=== PATIENT | female | born 1960 | race Caucasian/White ===

== ENCOUNTER → 2019-06-16 12:09 | Outpatient (CLI) | payer BC, SELFPAY | PROVIDERS: Visit Provider Nurse Practitioner Family | DX: J45.21 Mild intermittent asthma with (acute) exacerbation (principal); J98.01 Acute bronchospasm | CPT/HCPCS: 87070; 87205 ==

== ENCOUNTER → 2019-08-21 14:03 | Outpatient (POV) | payer BC, SELFPAY | PROVIDERS: Visit Provider Dermatology | DX: Z00.00 Encounter for general adult medical examination without abnormal findings (principal) ==

== ENCOUNTER → 2020-05-13 12:21 | Outpatient (CLI) | payer BC, SELFPAY ==
--- NOTE | 2020-05-13 12:32 | XR_ITS ---
PROCEDURE: XR KUB CLINICAL INDICATION: FLANK PAIN,H/O RENAL CALCULI COMPARISON: No exams were available for comparison FINDINGS: No obvious renal calculi. There are multiple pelvic calcifications on both sides anyone which could represent a ureteral calculus. Consider CT for more thorough evaluation. Sclerotic areas present in the left acetabular roof region and may be due to a bone island. IMPRESSION: Multiple nonspecific pelvic calcifications. These are more than likely consistent with phleboliths however a ureteral calculus could also be present. Consider CT for further evaluation. Dictated by: Avelino Sigala MD 05/13/2020 18:31 Avelino Sigala MD in [place] 05/13/2020 18:31
== END ==
PROVIDERS: PCP Nurse Practitioner Family; Visit Provider Nurse Practitioner Family
DX: R10.9 Unspecified abdominal pain (principal); Z87.442 Personal history of urinary calculi
CPT/HCPCS: 74018

== ENCOUNTER → 2020-05-16 06:51 | Outpatient (CLI) | payer BC, SELFPAY ==
--- NOTE | 2020-05-16 06:58 | CT_ITS ---
PROCEDURE: CT ABDOMEN PELVIS WO CON CLINICAL INDICATION: FLANK PAIN..HX OF KIDNEY STONES bilat flank pain x 2 weeks COMPARISON: No exams were available for comparison TECHNIQUE: Axial images obtained with sagittal and coronal reformats. All CT scans at the facility use one or more dose reduction, viz: automated exposure control, ma/kV adjustment per patient size (including targeted exams where dose is matched to indication, i.e. head), or iterative reconstruction technique. FINDINGS: LOWER THORAX: There is patchy density in the lingula may be due to an area of atelectasis . Coronary artery calcification is noted ABDOMEN & PELVIS: There has been a prior cholecystectomy. There is a 19 x 13 mm hypodense nodule in the right hepatic lobe. 2 splenules are noted. The spleen, adrenal glands, and pancreas have an unremarkable appearance. There is a 4 mm nonobstructing stone in the mid polar region of the right kidney. No hydronephrosis or hydroureter. No ureteral calculi. There is a small umbilical hernia containing fat. No intestinal obstruction or free air. No evidence of appendicitis. Prior hysterectomy. No pelvic mass or abnormal fluid collection There are mild osteoarthritic changes of the hips. A sclerotic focus is present in the left acetabular roof and may be due to a bone island IMPRESSION: 1. No acute abdominal or pelvic findings. 2. Nonobstructing right nephrolithiasis 3. Indeterminate hypodense lesion of the liver possibly due to a cyst. Ultrasound may confirm cystic or solid nature. Dictated by: Avelino Sigala MD 05/18/2020 08:43 Avelino Sigala MD in [facility] 05/18/2020 08:43
== END ==
PROVIDERS: PCP Nurse Practitioner Family; Visit Provider Nurse Practitioner Family
DX: R10.9 Unspecified abdominal pain (principal); Z87.442 Personal history of urinary calculi
CPT/HCPCS: 74176

== ENCOUNTER → 2020-05-27 08:28 | Outpatient (CLI) | payer BC, SELFPAY ==
--- NOTE | 2020-05-27 08:32 | US_ITS ---
PROCEDURE: US LIVER CLINICAL INDICATION: ABN CT OF THE ABD, LIVER LESION COMPARISON: CT CT ABDOMEN PELVIS WO CON from 05/16/2020 FINDINGS: PANCREAS: Unremarkable. No obvious mass or abnormal fluid collection. No ductal dilatation LIVER: There is a septated 2.3 x 1.7 cm cystic lesion in the right hepatic lobe corresponding to the CT abnormality. RIGHT KIDNEY: Unremarkable. Normal size and echogenicity. No hydronephrosis GALLBLADDER: Prior cholecystectomy. Common bile duct is normal at 2 mm. IMPRESSION: Liver lesion corresponds to a 2.3 x 1.7 cm septated cyst. Dictated by: Avelino Sigala MD 05/27/2020 15:02 Avelino Sigala MD in [facility] 05/27/2020 15:02
== END ==
PROVIDERS: PCP Nurse Practitioner Family; Visit Provider Nurse Practitioner Family
DX: R93.5 Abnormal findings on diagnostic imaging of other abdominal regions, including retroperitoneum (principal); K76.9 Liver disease, unspecified
CPT/HCPCS: 76705

== ENCOUNTER → 2020-06-03 14:59 | Outpatient (CLI) | payer BC, SELFPAY ==
--- NOTE | 2020-06-03 15:15 | XR_ITS ---
PROCEDURE: XR MULTIPLE SPINE 6+V CLINICAL INDICATION: ACUTE MIDLINE THORACIC AND LOW BACK PAIN W/O SCIATICA COMPARISON: CR XR CHEST 2V from 05/17/2019 FINDINGS: Thoracic spine: There is mild multilevel thoracic spondylosis with mild kyphosis and mild wedging T5, T6, T7, and T8 not significantly changed from prior lateral chest radiograph.. No acute fracture or dislocation. Lumbar spine: There is some mild endplate sclerosis of L4 IMPRESSION: Mild degenerative changes, no acute finding. Dictated by: Avelino Sigala MD 06/03/2020 16:39 Avelino Sigala MD in [place] 06/03/2020 16:39
== END ==
PROVIDERS: PCP Nurse Practitioner Family; Visit Provider Nurse Practitioner Family
DX: M54.6 Pain in thoracic spine (principal); M54.5 Low back pain
CPT/HCPCS: 72084

== ENCOUNTER → 2020-12-30 16:25 | Outpatient (CLI) | payer BC, SELFPAY ==
--- NOTE | 2020-12-30 16:31 | XR_ITS ---
PROCEDURE: XR KUB CLINICAL INDICATION: KIDNEY STONE, GROSS HEMATURIA, SUPRAPUBIC PAIN, ACUTE COMPARISON: CT CT ABDOMEN PELVIS WO CON from 05/16/2020 FINDINGS: Mild to moderate fecal retention of the colon is noted, overlies the right kidney limiting evaluation. No evidence of renal calculi within the limitations of the study. Cholecystectomy clips are noted in the right upper quadrant. Nonspecific nonobstructive bowel gas pattern. Visualized lumbar spine is unremarkable. Minor degenerative changes of the bilateral hip joints. IMPRESSION: No evidence of renal calculi within the limitations of the study. Dictated by: Moraima Benedict 12/31/2020 10:47 Moraima Benedict in [facility] 12/31/2020 10:47
== END ==
PROVIDERS: PCP Nurse Practitioner Family; Visit Provider Nurse Practitioner Family
DX: R10.2 Pelvic and perineal pain (principal); R31.0 Gross hematuria; N20.0 Calculus of kidney
CPT/HCPCS: 74018

== ENCOUNTER → 2021-06-09 14:54 | Outpatient (CLI) | payer BC, SELFPAY ==
--- NOTE | 2021-06-09 14:59 | XR_ITS ---
PROCEDURE: XR CERVICAL SPINE 5V CLINICAL INDICATION: CERVICALGIA COMPARISON: CR XR MULTIPLE SPINE 6+V from 06/03/2020 FINDINGS: Degenerative disc disease C3-C4 and C4-C5. 3 mm anterolisthesis C4-C5. Mild foraminal narrowing on the right at C3-C4 and moderate foraminal narrowing on the left at C3-C4. Mild facet hypertrophic change C3, C4, and C5. No cervical rib. No fracture or dislocation. No lytic or blastic change. IMPRESSION: Mild cervical spondylosis Dictated by: Avelino Sigala MD 06/10/2021 07:55 Avelino Sigala MD in [place] 06/10/2021 07:55
== END ==
PROVIDERS: PCP Nurse Practitioner Family; Visit Provider Nurse Practitioner Family
DX: M54.2 Cervicalgia (principal)
CPT/HCPCS: 72050

== ENCOUNTER → 2021-09-03 11:53 | Outpatient (CLI) | payer BC, SELFPAY ==
--- NOTE | 2021-09-03 11:57 | XR_ITS ---
FINAL REPORT CLINICAL HISTORY: LEFT FLANK PAIN RENAL CALCULI, HX OF STONES AND LITHOTRIPSY COMPARISON: 12/30/2020 FINDINGS: A single view of the abdomen was obtained. There is a nonobstructive bowel gas pattern. There is a moderate to large amount of stool in the colon. There are no abnormally dilated loops of small bowel. There are several phleboliths in the pelvis. IMPRESSION: Nonobstructive bowel gas pattern. Constipation Reviewed, Interpreted and Dictated by Mykel Noel III, MD Transcribed by Nargis Reynolds Authenticated by Mykel Noel III, MD on 09/03/2021 01:12:26 PM [facility]
== END ==
PROVIDERS: PCP Nurse Practitioner Family; Visit Provider Nurse Practitioner Family
DX: R10.9 Unspecified abdominal pain (principal); N20.0 Calculus of kidney
CPT/HCPCS: 74018

== ENCOUNTER → 2021-10-01 08:44 | Outpatient (CLI) | payer BC, SELFPAY ==
--- NOTE | 2021-10-01 08:57 | CT_ITS ---
FINAL REPORT CLINICAL HISTORY: LT FLANK PAIN hematuria 2 months ago COMPARISON: May 16, 2020 FINDINGS: Axial CT images of the abdomen and pelvis were obtained without intravenous contrast. Coronal reformatted images were also obtained.This study was performed with techniques to keep radiation doses as low as reasonably achievable (ALARA). Individualized dose reduction techniques using automated exposure control or adjustment of mA and/or kV according to the patient's size were employed. Abdomen: The lung bases are clear. The gallbladder is surgically absent. There are 3 hepatic masses with the largest measuring 24 mm. These cannot be accurately characterized without contrast but are visually stable. The spleen and pancreas have an unremarkable, unenhanced appearance. There are several, less than 3 mm, non obstructing right renal stones. There is no hydronephrosis. No inflammatory process is identified. Pelvis: The appendix appears normal. There is no evidence of ureteral dilation or ureteral stone.No mass or abnormal fluid collection is identified. IMPRESSION: Several less than 3 mm non obstructing right renal stones. Three stable hepatic masses. Reviewed, Interpreted and Dictated by Mykel Noel III, MD Transcribed by Amy Dye Authenticated by Mykel Noel III, MD on 10/01/2021 10:40:34 AM [facility]
== END ==
PROVIDERS: PCP Nurse Practitioner Family; Visit Provider Nurse Practitioner Family
DX: R10.9 Unspecified abdominal pain (principal)
CPT/HCPCS: 74176

== ENCOUNTER → 2022-04-01 14:22 | Outpatient (CLI) | payer BC, SELFPAY ==
--- NOTE | 2022-04-01 14:30 | XR_ITS ---
FINAL REPORT CLINICAL HISTORY: RT FLANK PAIN,RT RENAL STONE FINDINGS: SINGLE VIEW ABDOMEN A single view of the abdomen was obtained. There is a nonobstructive bowel gas pattern. There are no abnormally dilated loops of small bowel. There is a moderate to large amount of stool seen throughout the colon. There is a probable, 2 mm stone in the mid right kidney. Multiple pelvic calcifications are seen, likely phleboliths. However, ureteral stone not excluded. IMPRESSION: Probable, 2 mm stone in the mid right kidney. Reviewed, Interpreted and Dictated by Mykel Noel III, MD Transcribed by Layla Thomas Authenticated and [facility]
[2022-04-01 15:14] LABS: Basophils # 0.1 K/mm3 (0-0.2); Basophils % 1.8 % (0.1-2.0); Eosinophils # 0.1 K/mm3 (0.0-0.4); Hematocrit 44.3 % (37.0-47.0); Hemoglobin 14.1 g/dL (12.2-16.2); Lymphocytes # 2.7 K/mm3 (0.7-4.5); Lymphocytes % 40.3 % (10-50); Mean Corpuscular Hemoglobin 28.9 pg (27.0-31.2); Mean Corpuscular Volume 90.4 fl (81-99); Mean Platelet Volume 8.3 fl (7.4-10.4); Monocytes # 0.5 K/mm3 (0.1-1.0); Neutrophils # 3.3 K/mm3 (1.8-7.8); Neutrophils % 48.9 % (37.0-80.0); Platelet Count 255 K/mm3 (142-424); Red Cell Distribution Width 13.5 % (11.5-17.5); White Blood Count 6.7 K/mm3 (4.8-10.8)
[2022-04-01 16:00] LABS: Alanine Aminotransferase 30 U/L (12-78); Albumin Level 4.3 g/dl (3.5-5.0); Albumin/Globulin Ratio 1.5 (1.1-1.8); Alkaline Phosphatase 112 U/L (38-126); Anion Gap 8.1 mEq/L (5-15); Aspartate Amino Transferase 33 U/L (14-36); Blood Urea Nitrogen 21 mg/dl (7-17); Calcium 9.8 mg/dl (8.4-10.2); Carbon Dioxide 30 mmol/L (22.0-30.0); Chloride 106 mmol/L (98-107); Estimated Glomerular Filt Rate 101 ml/min (>60); GFR (African American) 123 ML/MIN (>60); Globulin 2.8 g/dL (1.3-3.2); Glucose 89 mg/dl (74-100); Potassium 4.1 mmoL/L (3.5-5.1); Sodium 140 mmol/L (136-145); Total Protein,Serum 7.1 g/dl (6.3-8.2)
[2022-04-01 16:01] LABS: Bilirubin,Total 0.1 mg/dl (0.2-1.3)
== END ==
PROVIDERS: PCP Nurse Practitioner Family; Visit Provider Nurse Practitioner Family
DX: R10.9 Unspecified abdominal pain (principal); N20.0 Calculus of kidney
CPT/HCPCS: 36415; 74018; 80053; 85025

== ENCOUNTER → 2022-04-12 15:02 | Outpatient (CLI) | payer BC, SELFPAY ==
--- NOTE | 2022-04-12 15:11 | XR_ITS ---
FINAL REPORT CLINICAL HISTORY: renal stone known and right sided flank pain-- was hurting worse over the weekend COMPARISON: 04/01/2022 FINDINGS: SINGLE VIEW ABDOMEN A single view of the abdomen was obtained. There is a nonobstructive bowel gas pattern. There are no abnormally dilated loops of small bowel. There is a tiny, 3 mm right renal stone. IMPRESSION: 3 mm right renal stone. Reviewed, Interpreted and Dictated by Skinny Tan MD Transcribed by Layla Thomas Authenticated and . [facility]
== END ==
PROVIDERS: PCP Nurse Practitioner Family; Visit Provider Nurse Practitioner Family
DX: R10.9 Unspecified abdominal pain (principal); N20.0 Calculus of kidney
CPT/HCPCS: 74018

== ENCOUNTER → 2022-04-22 14:03 | Outpatient (CLI) | payer BC, SELFPAY | PROVIDERS: PCP Nurse Practitioner Family; Visit Provider Nurse Practitioner Family | DX: R00.2 Palpitations (principal) | CPT/HCPCS: 93225; 93226 ==

== ENCOUNTER → 2022-11-10 16:45 | Outpatient (CLI) | payer BC, SELFPAY ==
--- NOTE | 2022-11-10 16:49 | MR_ITS ---
PROCEDURE INFORMATION: Exam: MR Head Without Contrast Exam date and time: 11/10/2022 5:00 PM Age: 61 years old Clinical indication: Pain; Headache; Additional info: New onset of headaches. Loss of words when speaking. Headaches from top of head down base of neck. X 6 months TECHNIQUE: Imaging protocol: Magnetic resonance imaging of the head without contrast. COMPARISON: CR XR CERVICAL SPINE 5V 06/09/2021 3:01 PM FINDINGS: Brain: No acute intraparenchymal hemorrhage, territorial infarct or mass lesion. There are scattered T2 hyperintensities in the periventricular and subcortical white matter. The appearance is nonspecific, but most likely represents chronic small vessel disease in a person of this age. Cerebral ventricles: The ventricles, sulci and cisterns are normal in size and configuration. No hydrocephalus or midline structure shift Pituitary gland and sella: Orbits, sellar/parasellar structures and cervicomedullary junction are unremarkable. Bones/joints: Unremarkable. Paranasal sinuses: Mucosal thickening/mucous retention cyst in the right maxillary sinus Mastoid air cells: Normal as visualized. No mastoid effusion. Orbital cavities: Unremarkable. Vasculature: Flow voids of the major vascular structures are intact. Soft tissues: Unremarkable. IMPRESSION: 1. No acute intraparenchymal hemorrhage, territorial infarct or mass lesion. 2. Infectious/inflammatory right maxillary sinusitis
== END ==
PROVIDERS: PCP Nurse Practitioner Family; Visit Provider Nurse Practitioner Family
DX: R51.9 Headache, unspecified (principal)
CPT/HCPCS: 70551

== ENCOUNTER → 2023-04-29 14:01 | Outpatient (CLI) | payer BC, SELFPAY | PROVIDERS: PCP Nurse Practitioner Family; Visit Provider Nurse Practitioner Family | DX: R10.9 Unspecified abdominal pain (principal) | CPT/HCPCS: 87086 ==

== ENCOUNTER → 2023-05-04 06:09 | Outpatient (CLI) | payer BC, SELFPAY ==
--- NOTE | 2023-05-04 06:15 | CT_ITS ---
FINAL REPORT TECHNIQUE: Axial images through the abdomen and pelvis were performed without contrast. This study was performed with techniques to keep radiation doses as low as reasonably achievable, (ALARA). Individualized dose reduction techniques using automated exposure control or adjustment of mA and/or kV according to the patient's size were employed. CLINICAL HISTORY: flank pain, hx of renal calculi COMPARISON: 10/01/2021 FINDINGS: ABDOMEN: The lung bases are clear. The heart size is normal. The patient is status post cholecystectomy. There is a presumed cyst in the right hepatic lobe, stable. The spleen is normal. No adrenal mass is identified. The aorta is normal in caliber. There is no significant free fluid or adenopathy. There is no nephrolithiasis. There is no hydronephrosis. PELVIS: The appendix is not identified. The urinary bladder is unremarkable. There is no significant free fluid or adenopathy. IMPRESSION: No hydronephrosis or nephrolithiasis. Reviewed, Interpreted and Dictated by Mykel Noel III, MD Transcribed by Stacy Zamudio Authenticated and [facility]
[2023-05-04 07:03] LABS: Microscopic, Urine URINE MICROSCOPIC (MICROSCOPIC)
[2023-05-04 07:14] LABS: Appearance,Urine CLEAR (Clear); Bilirubin,Urine Negative (Negative); Blood, Urine Negative (Negative); Color,Urine YELLOW (Yellow); Glucose,Urine (UA) Negative (Negative); Ketones,Urine Negative (Negative); Leukocyte Esterase,Urine Negative (Negative); Nitrate,Urine Negative (Negative); Protein,Urine Negative (Negative); Specific Gravity, Urine >= 1.030 (1.005-1.030); Urobilinogen,Urine 0.2 EU/dl (0.2)
[2023-05-04 07:26] LABS: Bacteria,Urine Trace /lpf; Squamous Epithelial Cell,Urine Occasional #/hpf (0-5)
== END ==
PROVIDERS: PCP Nurse Practitioner Family; Visit Provider Nurse Practitioner Family
DX: R10.9 Unspecified abdominal pain (principal); Z87.442 Personal history of urinary calculi; M54.9 Dorsalgia, unspecified
CPT/HCPCS: 74176; 81001; 87086

== ENCOUNTER 2024-03-15 07:40 | Outpatient (CLI) | payer BC, SELFPAY ==
[2024-03-15 08:25] LABS: Hemoglobin A1C 5.2 % (4.0-6.0)
[2024-03-15 08:58] LABS: Alanine Aminotransferase 23 U/L (12-78); Albumin Level 3.9 g/dl (3.5-5.0); Albumin/Globulin Ratio 1.4 (1.1-1.8); Alkaline Phosphatase 87 U/L (38-126); Anion Gap 7.2 mEq/L (5-15); Aspartate Amino Transferase 26 U/L (14-36); Bilirubin,Total 0.5 mg/dl (0.2-1.3); Blood Urea Nitrogen 20 mg/dl (7-17); Calcium 9.7 mg/dl (8.4-10.2); Carbon Dioxide 30 mmol/L (22.0-30.0); Chloride 107 mmol/L (98-107); Chol/HDL Ratio 2.8 (1-3.5); Cholesterol 211 mg/dl (140-200); Estimated Glomerular Filt Rate 84 ml/min (>60); GFR (African American) 102 ML/MIN (>60); Globulin 2.8 g/dL (1.3-3.2); Glucose 97 mg/dl (74-100); HDL Cholesterol 76 mg/dl (40-60); Potassium 4.2 mmoL/L (3.5-5.1); Sodium 140 mmol/L (136-145); Total Protein,Serum 6.7 g/dl (6.3-8.2); Triglycerides 115 mg/dl (30-150); VLDL Cholesterol 23 mg/dL (0-40)
[2024-03-15 09:15] LABS: 25-OH Vitamin D, Total 60.8 ng/mL (30-100)
[2024-03-15 09:27] LABS: Thyroid Stimulating Hormone 1.33 uIU/mL (0.465-4.68)
[2024-03-15 09:46] LABS: Vitamin B12 387 pg/mL (239-931)
[2024-03-15 11:07] LABS: Ferritin 116 ng/ml (11.1-264)
[2024-03-19 00:03] LABS: Magnesium,RBC 5.4 mg/dL (3.7-7.0)
== END 2024-03-15 23:59 | disposition home or self-care (01) ==
LOC: LAB 07:41
PROVIDERS: PCP Nurse Practitioner Family; Visit Provider Nurse Practitioner Family
DX: E78.5 Hyperlipidemia, unspecified (principal); I10 Essential (primary) hypertension; Z68.32 Body mass index [BMI] 32.0-32.9, adult
CPT/HCPCS: 36415; 80053; 80061; 82306; 82607; 82728; 83036; 83735; 84443

== ENCOUNTER 2024-04-03 14:34 | Outpatient (CLI) | payer BC, SELFPAY ==
[2024-04-03 15:48] VITALS: BMI 35.1
== END 2024-04-03 23:59 | disposition home or self-care (01) ==
LOC: DIETICIAN 14:34
PROVIDERS: PCP Nurse Practitioner Family; Visit Provider Nurse Practitioner Family
DX: E66.9 Obesity, unspecified (principal); Z68.32 Body mass index [BMI] 32.0-32.9, adult
CPT/HCPCS: 97802

== ENCOUNTER 2024-06-20 09:53 | Outpatient (CLI) | payer BC, SELFPAY ==
--- NOTE | 2024-06-20 09:56 | XR_ITS ---
PROCEDURE INFORMATION: Exam: XR Lumbosacral Spine Exam date and time: 06/20/2024 10:13 AM Age: 63 years old Clinical indication: Pain and injury or trauma; Other: Stepped in a hole; Other: Pain after stepping in a hole; Lumbago with sciatica; Additional info: Lumbago with right sided sciatica TECHNIQUE: Imaging protocol: Radiologic exam of the lumbosacral spine. Views: 2 or 3 views. COMPARISON: CR XR MULTIPLE SPINE 6+V 06/03/2020 3:21 PM FINDINGS: Bones/joints: [id number] degenerative disc and joint space changes most pronounced at L4/5 and L5/S1. Vertebral body heights grossly preserved. No acute fracture. Normal alignment. Soft tissues: Unremarkable. IMPRESSION: No acute findings.
--- NOTE | 2024-06-20 09:56 | XR_ITS ---
PROCEDURE INFORMATION: Exam: XR Right Hip Exam date and time: 06/20/2024 10:13 AM Age: 63 years old Clinical indication: Pain and injury or trauma; Other: Stepped in a hole; Other: Pain after stepping in a hole; Hip pain; Right hip; Additional info: Right hip pain TECHNIQUE: Imaging protocol: Radiologic exam of the right hip. Views: 2 or 3 views hip with pelvis when performed. COMPARISON: CT ABDOMEN PELVIS WO CON 05/04/2023 6:37 AM FINDINGS: Bones/joints: Moderate degenerative changes of both hips and sacroiliac joints. No erosive changes. No acute fracture. Soft tissues: Unremarkable. IMPRESSION: No acute findings.
== END 2024-06-20 23:59 | disposition home or self-care (01) ==
LOC: RAD 09:54
PROVIDERS: PCP Nurse Practitioner Family; Visit Provider Nurse Practitioner Family
DX: M25.551 Pain in right hip (principal); M54.41 Lumbago with sciatica, right side
CPT/HCPCS: 72100; 73502

== ENCOUNTER 2025-04-02 08:07 | Outpatient (CLI) | payer MEDICARE, SELFPAY ==
--- OUTSIDE RECORDS SUMMARY | 2025-02-14 13:45 | XMS_ITS | Encounter Summary ---
Author Organization [facility] rology Address [address] [place] [address] Care Team Providers Care [employer] Name Role Phone Akanksha Saucedo APRN Primary Care Provider Reason for Referral * Surgical (Routine) - AFF Authorized Specialty Diagnoses / Procedures Referred By Contact Referred To Contact Gastroenterology Diagnoses Chronic throat clearing Procedures ESOPHAGOGASTRODUODENOSCOPY (EGD) VA ESOPHAGOGASTRODUODENOSCOPY TRANSORAL DIAGNOSTIC VA DILATION ESOPH UNGUIDED SOUND/BOUGIE 1/MULT PASS VA EGD INSERT GUIDE WIRE DILATOR PASSAGE ESOPHAGUS VA EGD BALLOON DILATION ESOPHAGUS <30 MM DIAM Johnna Martinez APRN [address] [place] [address] Phone: tel:[phone] fax:[phone] Salvador Gonzalez MD [address] [place] [address] Phone: tel:[phone] fax:[phone] Referral ID Status Reason Start Date Expiration Date Visits Requested Visits Authorized [id number] AFF Authorized 02/01/2025 02/01/2026 1 1 Reason for Visit * Surgical (Routine) - AFF Authorized Specialty Diagnoses / Procedures Referred By Contact Referred To Contact Gastroenterology Diagnoses Chronic throat clearing Procedures ESOPHAGOGASTRODUODENOSCOPY (EGD) VA ESOPHAGOGASTRODUODENOSCOPY TRANSORAL DIAGNOSTIC VA DILATION ESOPH UNGUIDED SOUND/BOUGIE 1/MULT PASS VA EGD INSERT GUIDE WIRE DILATOR PASSAGE ESOPHAGUS VA EGD BALLOON DILATION ESOPHAGUS <30 MM DIAM Johnna Martinez APRN [address] [place] [address] Phone: tel:[phone] fax:[phone] Salvador Gonzalez MD [address] [place] [address] Phone: tel:[phone] fax:[phone] Referral ID Status Reason Start Date Expiration Date Visits Requested Visits Authorized [id number] AFF Authorized 02/01/2025 02/01/2026 1 1 Encounter Details Date Type Department Care Team (Latest Contact Info) Description 02/14/2025 1:45 PM EDT - 02/14/2025 11:59 PM EDT Hospital Encounter [facility] [address] [place], [place] [id number] Johnna Martinez APRN [address] [place] [address] Salvador Gonzalez MD [address] [place] [address] Chronic throat clearing Discharge Disposition: Home or Self Care Social History Tobacco Use Types Packs/Day Years Used Date Smoking Tobacco: Never Smokeless Tobacco: Never Alcohol Use Standard Drinks/Week Comments No 0 (1 standard drink = 0.6 oz pur e alcohol) Sexually Active Control Partners Comments Yes Post-menopausal Male Comments No Sex and Gender Information Value Date Recorded Sex Assigned at Not on file Legal Sex Female 3:07 PM EDT Gender Identity Not on file Sexual Orientation Not on file documented as of this encounter Last Filed Vital Signs Vital Sign Reading Time Taken Comments Blood Pressure 115/76 02/14/2025 3:16 PM EDT Pulse 69 02/14/2025 3:16 PM EDT Temperature 36.4 C (97.5 F) 02/14/2025 1:52 PM EDT Respiratory Rate 16 02/14/2025 3:01 PM EDT Oxygen Saturation 97% 02/14/2025 3:16 PM EDT Inhaled Oxygen Concentration - - Weight 55.8 kg (123 lb) 02/14/2025 1:52 PM EDT Height 154.9 cm (5' 1 ) 02/14/2025 1:52 PM EDT Body Mass Index 23.24 02/14/2025 1:52 PM EDT documented in this encounter Discharge Instructions * Discharge Instructions* Gabby Nixon RN - 02/14/2025 3:03 PM EDT Images from the original note were not included. Recommendation Follow up with me in clinic in 3 months Follow up with pathology results. If no results in 4 weeks, please call the office at [phone]. Continue GERD management If symptoms persist, please notify office IT IS VERY IMPORTANT THAT YOU FOLLOW THESE INSTRUCTIONS: ACTIVITY: The sedative medications generally wear off quickly, but they may make you less alert than normal. Today should be a day of rest. DO NOT drive a car, undertake vigorous exercise, or operatemachinery today. DO NOT sign any legal documents or make any important decisions. You may resume normal activity the day after your procedure. DIET: You may resume your usual diet unless directed otherwise. It is encouraged that you drink plenty of fluids throughout the day to help replenish lost fluids. DO NOT consume alcoholic beverages until the following day due to the residual effects of the administered sedation. MEDICATIONS: Resume home medications unless the physician indicates otherwise in the recommendations listed above. WHAT TO EXPECT FOLLOWING YOUR PROCEDURE: You may experience a mild sore throat related to the passage of the endoscope. Sharp or persistent abdominal, neck or chest pain is uncommon after procedure. If you experience persistent pain or vomiting blood following procedure, please contact the office. If you develop a fever greater than 101 degrees or chills during the next 48 hours, please contact our office. Please monitor your IV site closely for any post removal complications. You may or may not have received medications that are classified as vesicants (medications that can cause tissue damage). Examples of such medications used at [facility] [place] include dextrose, epinephrine, esmolol, lorazepam, phenylephrine, and/or promethazine. The medications you received today will be listed on the first page of your discharge instructions. Please contact our office immediately if any of the following occur: Red streaks on your skin near the IV site Skin at the IV site turns dark or peels Fluid, blood, or pus leaking from the IV site Swelling, pain or redness at the IV site that doesn???t get better or gets worse Numb, tight, or cool feeling at the IV site Blisters or bruises on your skin at the IV site Fever of 100.4 or higher You may feel nauseated today. This may occur due to the medications administered for your procedure. This should resolve within a few hours. If your nausea continues for more than 24 hours, please contact our office. Do not use enemas or suppositories unless you have discussed this with your physician. Contact our office at [phone] or [phone] if questions or problems arise. Our office hoursare 8:00 am to 5:00 pm Tuesday through Tuesday. A practitioner is operations supervisor outside of office hours foremergency phone calls at [phone] or [phone] Biopsies are used to evaluate many things and do not indicate that cancer was found. They are used to help determine the cause of symptoms. All biopsies will be reviewed by a pathologist. The resultsmay not be available for 2-3 weeks. Follow up on the biopsy results as instructed by your physician. After you have completely recovered from your sedation, please review your discharge instructions. You may not remember speaking with your physician following your procedure due to the amnesic effects of the sedation. In efforts to provide continuity of care, you will receive a follow up phone call from our [facility] the following day (or on Tuesday should your procedure fall on Tuesday). If you are unavailable to accept the call and if permissible, according to your HIPAA form on file, we will leave a message. You are not required to return the call unless you have questions or concerns. If the HIPAA form that is on file does not permit our facility to leave a message, we will not do so. We strive to provide compassionate, high quality, cost effective care to our patients and to make your experience as comfortable as possible. We value your opinion and encourage you to offer commentsor suggestions by completing a brief online survey (via secured connection) that will be emailed toyou within a week your procedure from [employer]. Your input contributes to our facility's process of continually reviewing and improving patient satisfaction. We thank you in advance for your feedback. Patient Education Acid Reflux and GERD in Adults Discharge Instructions About this topic GERD stands for gastroesophageal reflux disease. It is sometimes called reflux or acid reflux. Acidreflux happens when your stomach acid backs up into your esophagus, the tube that carries your foodfrom your mouth to your stomach. This can be uncomfortable. You may have stomach or chest pain (heartburn), trouble swallowing, or an upset stomach. Some people have a cough or sore throat. Most of the time, you can use bree-wmr-eboxstg medicines to help with this problem. What care is needed at home? Ask your doctor what you need to do when you go home. Make sure you ask questions if you do not understand what the doctor says. Raise the head of your bed by 6 to 8 inches (15 to 20 cm). Use wood or rubber blocks under 2 legs or try a foam wedge under your mattress. Just sleeping with your head raised on pillows is not enough. Avoid beer, wine, and mixed drinks and avoid caffeine. Keep a healthy weight. If you are too heavy, lose weight. If you smoke, try to quit. Your doctor or nurse can help. Keep a diary of your signs. Write down what you had to eat before you had reflux. This will help you learn which foods cause you problems. For some people, they need to avoid coffee, chocolate, alcohol, spicy or fatty foods, or peppermint. Avoid eating for 2 to 3 hours before bedtime. Lying down after you eat can make reflux worse. Avoid belts and clothes that are too tight. What follow-up care is needed? Your doctor may ask you to make visits to the office to check on your progress. Be sure to keep these visits. What drugs may be needed? The doctor may order drugs to: Relieve heartburn Prevent reflux Lessen acid production Heal the esophageal lining Will physical activity be limited? Your physical activities will not be limited. What problems could happen? Asthma Precancerous changes in the food pipe Long-term cough Dental problems Higher risk of cancer of the food pipe. This is esophageal cancer. Narrowing of the food pipe. This is a stricture. Open sore in the food pipe. This is an ulcer. When do I need to call the doctor? You have signs of a heart attack, which may include: Severe chest pain, pressure, or discomfort with: Breathing trouble, sweating, upset stomach, or cold, clammy skin. Pain in your arms, back, or jaw. Worse pain with activity like walking up stairs. Fast or irregular heartbeat. Feeling dizzy, faint, or weak. You have sudden, severe belly pain or the belly pain is constant. You have blood in the undigested food and acid that comes up, or stool that looks red, black, or like tar. You feel like your food gets stuck or you have pain when you swallow. You lose weight when you are not trying to. You choke when you are eating. Your reflux is very bad, very frequent, or not helped by bizj-mtr-dqbymki medicines. You keep throwing up. Teach Back: Helping You Understand The Teach Back Method helps you understand the information we are giving you. After you talk with the staff, tell them in your own words what you learned. This helps to make sure the staff has described each thing clearly. It also helps to explain things that may have been confusing. Before going home, make sure you can do these: I can tell you about my condition. I can tell you what changes I need to make with my eating habits to ease the reflux. I can tell you what I will do if I am throwing up fluid that looks like blood or coffee grounds. Where can I learn more? [employer] https://familydoctor.org/condition/refluxacid-reflux/ NHS Choices https://www.nhs.uk/conditions/fnrxlzwkt-sbs-kaxc-reflux/ Last Reviewed Date 2021-01-28 Consumer Information Use and Disclaimer This information is not specific medical advice and does not replace information you receive from your health care provider. This is only a brief summary of general information. It does NOT include all information about conditions, illnesses, injuries, tests, procedures, treatments, therapies, discharge instructions or life-style choices that may apply to you. You must talk with your health care provider for complete information about your health and treatment options. This information should not be used to decide whether or not to accept your health care provider???s advice, instructions or recommendations. Only your health care provider has the knowledge and training to provide advice that is right for you. Copyright Copyright ?? 2020 [employer] and its affiliates and/or licensors. All rights reserved. documented in this encounter Medications at Time of Discharge ANUCORT-HC 25 mg Rect Suppository INSERT 1 SUPPOSITORY RECTALLY THREE TIMES DAILY FOR 10 DAYS 02/24/2022 CALCIUM CARBONATE/VITAMI N D3 (VITAMIN D-3 ORAL) Take 1 Tab by mouth daily. MEMO 0.1 mg/24 hr TD Patch SemiweeklyIndica tions:Hormone replacement therapy APPLY 1 PATCH TOPICALLY ON THE SKIN TWICE A WEEK 24 Patch 02/01/2025 escitalopram oxalate (LEXAPRO) 20 mg Oral Tablet Take 40 mg by mouth daily. GAVILAX 17 gram/dose Oral Powder 01/20/2022 levocetirizine (XYZAL) 5 mg Oral Tablet Take 5 mg by mouth daily. 11/14/2024 lisinopril-hydro chlorothiazide (PRINZIDE;ZESTOR ETIC) 20-12.5 mg Oral Tablet 12/09/2015 metoprolol succinate (TOPROL-XL) 50 mg Oral Tablet Sustained Release 24 hr Take 50 mg by mouth daily. 01/09/2025 MULTIVITAMIN ORAL Take 1 Tab by mouth daily. pantoprazole (PROTONIX) 40 mg Oral Tablet, Delayed Release (E.C.) Take 1 Tablet by mouth daily. 90 Tablet 3 02/01/2025 rosuvastatin (CRESTOR) 10 mg tablet Take 10 mg by mouth daily. sertraline (ZOLOFT) 50 mg Oral Tablet Take 50 mg by mouth daily. VASCULERA 630 mg Oral Tablet Take 1 Tablet by mouth daily. 04/08/2022 ZEPBOUND 12.5 mg/0.5 mL SubQ Pen Injector inject 1 syringe subcutaneously once a week 11/16/2024 zolpidem (AMBIEN) 5 mg Oral Tablet TAKE 1 TABLET BY MOUTH ONCE DAILY FOR 90 DAYS 04/02/2022 documented as of this encounter Discharge Disposition Disposition Code Departure Means Destination Home or Self Care documented in this encounter Progress Notes * Melo Knott CRNA - 02/14/2025 3:00 PM EDT Images from the original note were not included. Patient: Jessica Curran Age: 64 y.o. Sex: female Vitals: Vitals: 02/14/25 1458 BP: Pulse: Resp: Temp: SpO2: 97% Planned Procedure: ESOPHAGOGASTRODUODENOSCOPY (EGD) Surgical History: Past Surgical History: Procedure Laterality Date CARPAL TUNNEL RELEASE Bilateral SECTION CHOLECYSTECTOMY FINGER TRIGGER RELEASE Left small finger HYSTERECTOMY LITHOTRIPSY SHOULDER ARTHROSCOPY Right 08/10/2016 RIGHT SHOULDER ARTHROSCOPY DECOMPRESSION ACROMIOPLASTY ACROMIOCLAVICULAR JOINT EXCISION (AMBIT) (GEN,SCALENE) (28.3); Surgeon: Prateek Dang MD; Location: [facility]; Service: Orthopedics Allergies: Allergies Allergen Reactions Sulfa (Sulfonamide Antibiotics) Hives Medications: Current Outpatient Medications Medication Instructions ANUCORT-HC 25 mg Rect Suppository INSERT 1 SUPPOSITORY RECTALLY THREE TIMES DAILY FOR 10 DAYS CALCIUM CARBONATE/VITAMIN D3 (VITAMIN D-3 ORAL) 1 Tablet, DAILY MEMO 0.1 mg/24 hr TD Patch Semiweekly APPLY 1 PATCH TOPICALLY ON THE SKIN TWICE A WEEK escitalopram oxalate (LEXAPRO) 40 mg, DAILY GAVILAX 17 gram/dose Oral Powder No dose, route, or frequency recorded. levocetirizine (XYZAL) 5 mg, DAILY lisinopril-hydrochlorothiazide (PRINZIDE;ZESTORETIC) 20-12.5 mg Oral Tablet No dose, route, or frequency recorded. metoprolol succinate (TOPROL-XL) 50 mg, DAILY MULTIVITAMIN ORAL 1 Tablet, DAILY pantoprazole (PROTONIX) 40 mg, Oral, DAILY rosuvastatin (CRESTOR) 10 mg, DAILY sertraline (ZOLOFT) 50 mg, DAILY VASCULERA 630 mg Oral Tablet 1 Tablet, DAILY ZEPBOUND 12.5 mg/0.5 mL SubQ Pen Injector inject 1 syringe subcutaneously once a week zolpidem (AMBIEN) 5 mg Oral Tablet TAKE 1 TABLET BY MOUTH ONCE DAILY FOR 90 DAYS Anesthesia Assessment: No results found for this visit on 02/14/25. 05/05/2022 12:40 PM 02/14/2025 2:30 PM AMB [facility] ANESTHESIA ASSESSMENT NPO Status date 05/05/2022 NPO Status time 09:45 QUALITY CONTROL SPECIALIST performed anesthesia assessment for patients receiving MAC anesthesia. Anesthesia plan explained to patient per QUALITY CONTROL SPECIALIST. Consent for anesthesia obtained. Yes Yes Neurological Assessment Within normal limits Within normal limits Cardiac Assessment RRR no M/R/G RRR no M/R/G Pulmonary Assessment Lungs clear to auscultate bilaterally / respirations easy and even Lungs clearto auscultate bilaterally / respirations easy and even Airway Evaluation Mallampati Classification 2 Mallampati Classification 2 Dentation Evaluation Good dentation Dentures - upper ASA Class P2 - a patient with mild systemic disease P2 - a patient with mild systemic disease Anesthesia supplies / equipment checked prior to procedure yes yes Procedure time out performed Yes Yes Patient position for procedure Left lateral position and HOB elevated Left lateral position and HOBelevated Monitors during procedure EKG;SaO2;EtCO2;NIBP EKG;SaO2;EtCO2;NIBP Oxygen delivery Mask Mask Airway utilized for procedure Chin lift Natural Post procedure report given to post procedure nurse Yes Yes Data saved with a previous flowsheet row definition Procedure Documentation: Sedation Summary (02/14/2025 14:31:54 to 02/14/2025 14:58:54) 02/14/2025 Event Details User 14:31:54 Documentation Start Time Melo Knott CRNA 14:31:56 Staff Arrived Salvador Gonzalez MD [Performing P]; Melo Knott CRNA [QUALITY CONTROL SPECIALIST]; Mirian Elizabeth RN [Nurse] Melo Knott CRNA 14:38 [facility] Vitals [facility] Vitals Resp: 0 (Device Time: 14:38:00) ETCO2 (mmHg): 0 mmHg (Device Time: 14:38:00) Melo Knott CRNA 14:38:01 Patient Out - Pre-Op Status: Patient in Pre-Op -- 14:38:01 Patient In - Proc. Room Status: Patient In Proc. Room -- 14:38:02 Anesthesia Start Time Melo Knott CRNA 14:38:04 Endoscopy Documentation Start Mirian Elizabeth RN 14:38:22 Timeout: Initial in Room Verified by Mirian Elizabeth, RN at 02/14/2025 1438 Mirian Elizabeth RN 14:39 [facility] Vitals [facility] BP: 126/84 (Device Time: 14:39:00) BP MAP (mmHg): 95 (Device Time: ::00) Resp: 12 (Device Time: :00) SpO2: 94 % (Device Time: ::) ETCO2 (mmHg): 30 mmHg (Device Time: ::00) Pulse: 64 (Device Time: ::00) Cardiac Rhythm: SR Melo Knott CRNA 14:40 [facility] Vitals [facility] Vitals Resp: 11 (Device Time: ::00) SpO2: 99 % (Device Time: ::00) ETCO2 (mmHg): 41 mmHg (Device Time: ::00) Pulse: 65 (Device Time: ::00) Melo Knott CRNA 14:41 [facility] Vitals [facility] End[facility] Vitals Resp: 8 (Device Time: ::) SpO2: 100 % (Device Time: ::00) ETCO2 (mmHg): 35 mmHg (Device Time: ::00) Pulse: 61 (Device Time: ::) Melo Knott CRNA 14:41:11 Medication Ordered and Given lidocaine 1% 10 mg/mL (1 %) injection - Dose: 5 mL ; Route: Intravenous ; Line: Peripheral IV 02/14/25 1356 Right Antecubital Ordered by: Melo Knott CRNA Desch, Daniel, CRNA 14:41:23 Pain Med Given Intravenous Given - fentaNYL (SUBLIMAZE) injection Melo Knott CRNA 14:41:23 Medication Ordered and Given fentaNYL (SUBLIMAZE) injection - Dose: 50 mcg ; Route: Intravenous ; Line: Peripheral IV 02/14/25 1356 Right Antecubital Ordered by: Melo Knott CRNA Desch, Daniel, CRNA 14:42 [facility] Vitals [facility] Vitals BP: 142/84 (Device Time: ::00) BP MAP (mmHg): 102 (Device Time: ::00) Resp: 5 (Device Time: ::00) SpO2: 100 % (Device Time: ::00) ETCO2 (mmHg): 37 mmHg (Device Time: :42:00) Pulse: 67 (Device Time: :42:00) Melo Knott CRNA 14:43 [facility] Vitals [facility] Vitals Resp: 8 (Device Time: :) SpO2: 100 % (Device Time: :) ETCO2 (mmHg): 19 mmHg (Device Time: :) Pulse: 62 (Device Time: ::00) Melo Knott CRNA 14:44 [facility] Vitals [facility] Endoscopy Vitals Resp: 9 (Device Time: :) SpO2: 100 % (Device Time: :) ETCO2 (mmHg): 41 mmHg (Device Time: :) Pulse: 67 (Device Time: ::00) Melo Knott CRNA 14:45 [facility] Vitals [facility] Vitals BP: 138/83 (Device Time: :45:00) BP MAP (mmHg): 101 (Device Time: ::) Resp: 6 (Device Time: ::) SpO2: 99 % (Device Time: ::) ETCO2 (mmHg): 28 mmHg (Device Time: ::) Pulse: 67 (Device Time: ::) Melo Knott CRNA 14:46 [facility] Vitals [facility] Endoscopy Vitals Resp: 11 (Device Time: ::00) SpO2: 99 % (Device Time: ::00) ETCO2 (mmHg): 40 mmHg (Device Time: :46:00) Pulse: 66 (Device Time: :46:00) Melo Knott CRNA 14:47 [facility] Vitals [facility] Endoscopy Vitals Resp: 9 (Device Time: ::00) SpO2: 99 % (Device Time: :) ETCO2 (mmHg): 42 mmHg (Device Time: :47:00) Pulse: 65 (Device Time: :47:00) Melo Knott CRNA 14:48 [facility] Vitals [facility] Vitals BP: 139/80 (Device Time: :48:00) BP MAP (mmHg): 100 (Device Time: :48:00) Resp: 12 (Device Time: :48:00) SpO2: 99 % (Device Time: :48:00) ETCO2 (mmHg): 35 mmHg (Device Time: :48:00) Pulse: 66 (Device Time: :48:00) Melo Knott CRNA 14:49 [facility] Vitals [facility] Endoscopy Vitals Resp: 11 (Device Time: :49:00) SpO2: 99 % (Device Time: :49:00) ETCO2 (mmHg): 38 mmHg (Device Time: :49:00) Pulse: 67 (Device Time: :49:00) Melo Knott CRNA 14:50 [facility] Vitals [facility]oscopy Vitals Resp: 10 (Device Time: :50:00) SpO2: 98 % (Device Time: :50:00) ETCO2 (mmHg): 38 mmHg (Device Time: :50:00) Pulse: 68 (Device Time: 14:50:00) Melo Knott CRNA 14:51 [facility] Vitals [facility] Vitals BP: 137/95 (Device Time: :51:00) BP MAP (mmHg): 109 (Device Time: :51:00) Resp: 13 (Device Time: :51:00) SpO2: 98 % (Device Time: ::00) ETCO2 (mmHg): 45 mmHg (Device Time: ::00) Pulse: 72 (Device Time: :51:00) Melo Knott CRNA 14:52 [facility] Vitals [facility] Vitals Resp: 13 (Device Time: ::00) SpO2: 98 % (Device Time: ::00) ETCO2 (mmHg): 42 mmHg (Device Time: :52:00) Pulse: 74 (Device Time: :52:00) Melo Knott CRNA 14:52:54 Medication Ordered and Given propofoL (DIPRIVAN) injection - Dose: 75 mg ; Route: Intravenous ; Line: Peripheral IV 02/14/25 1356 Right Antecubital Ordered by: Melo Knott CRNA Desch, Daniel, CRNA 14:53 [facility] Vitals [facility] Vitals Resp: 15 (Device Time: :53:00) SpO2: 99 % (Device Time: ::00) ETCO2 (mmHg): 3 mmHg (Device Time: :53:00) Pulse: 71 (Device Time: 14:53:00) Melo Knott CRNA 14:53:35 Timeout: Final - Physician Led Verified by Mirian Elizabeth RN at 02/14/2025 2258 Mirian Elizabeth RN 14:53:38 Endoscopy Scope In Time Mirian Elizabeth RN 14:54 [facility] Vitals [facility] Vitals Resp: 12 (Device Time: :54:00) SpO2: 96 % (Device Time: 14:54:00) ETCO2 (mmHg): 30 mmHg (Device Time: :54:00) Pulse: 69 (Device Time: 14:54:00) Melo Knott CRNA 14:55 Medication Given propofoL (DIPRIVAN) injection - Dose: 25 mg ; Route: Intravenous ; Line: Peripheral IV 02/14/25 1356 Right Antecubital Melo Knott CRNA 14:55 [facility] Vitals [facility]als BP: 125/71 (Device Time: :55:00) BP MAP (mmHg): 91 (Device Time: 14:55:00) Resp: 14 (Device Time: 14:55:00) SpO2: 98 % (Device Time: 14:55:00) ETCO2 (mmHg): 0 mmHg (Device Time: ::00) Pulse: 70 (Device Time: 14:55:00) Melo Knott CRNA 14:56 [facility] Vitals [facility] Vitals Resp: 10 (Device Time: :56:00) SpO2: 98 % (Device Time: 14:56:00) ETCO2 (mmHg): 14 mmHg (Device Time: 14:56:00) Pulse: 70 (Device Time: 14:56:00) Melo Knott CRNA 14:57 [facility] Vitals [facility]als BP: 115/73 (Device Time: 14:57:00) BP MAP (mmHg): 87 (Device Time: 14:57:00) Resp: 12 (Device Time: 14:57:00) SpO2: 98 % (Device Time: 14:57:00) ETCO2 (mmHg): 36 mmHg (Device Time: 14:57:00) Pulse: 72 (Device Time: 14:57:00) Melo Knott CRNA 14:57:43 Endoscopy Scope Out Time Mirian Elizabeth RN 14:57:53 Endoscopy Documentation End Mirian Elizabeth RN 14:57:56 Patient Out - Proc. Room Status: Patient In Proc. Room -- 14:58 Specimens Collected [facility] Pathology Order - ID: 1 Type: Tissue [facility] Pathology Order - ID: 2 Type: Tissue Salvador Gonzalez MD 14:58 [facility] Vitals [facility]oscopy Vitals Resp: 10 (Device Time: 14:58:00) SpO2: 97 % (Device Time: 14:58:00) ETCO2 (mmHg): 37 mmHg (Device Time: 14:58:00) Melo Knott CRNA 14:58:46 Orders Placed Lab - [facility] Pathology Order Salvador Gonzalez MD 14:58:50 Anesthesia End Melo Knott CRNA 14:58:54 Documentation End Melo Knott CRNA 14:58:54 Staff Departed Salvador Gonzalez MD [Performing P] (Automatically marked out by Documentation End event); Melo Knott CRNA [QUALITY CONTROL SPECIALIST] (Automatically marked out by Documentation End event); Mirian Elizabeth RN [Nurse] (Automatically marked out by Documentation End event) Melo Knott CRNA Performance Met for transition of care protocol The signature(s) below denote: Surgeon and JV/DONNELL collaboration for anesthesia necessity/delivery. Patient reassessed and meets all discharge criteria. No complications noted. DONNIE KNOTT CRNA documented in this encounter Plan of Treatment Upcoming Encounters Date Type Department Care Team (Late st Contact Info) Description 04/19/2025 9:15 [place] [address] Akanksha Saucedo, LANGUAGE TEACHER [facility] [place] [address] 04/19/2025 10:00 AM EDT Office Visit [facility] [address] [place] [address] Francesca Devine, LANGUAGE TEACHER [address] [place] [address] documented as of this encounter Goals Goal Patient Goal Type Associated Problems Recent Progress Patient-Stated? Author Blood Pressure < 140/90 Blood Pressure 115/76( 025 3:16 PM EDT) No Christina Camejo APRN documented as of this encounter Procedures Procedure Name Priority Date/Time Associated Diagnosis Comments [facility] PATHOLOGY ORDER Routine 02/14/2025 2:58 PM EDT Chronic throat clearing ESOPHAGOGASTRODUODENOSCOPY (EGD) Routine 02/14/2025 2:57 PM EDT Chronic throat clearing documented in this encounter Results * [facility] PATHOLOGY ORDER (02/14/2025 2:58 PM EDT) Tissue CARDIOESOPHAGEAL JUNCTION STRUCTURE / Unknown 02/14/2025 2:58 PM EDT Tissue specimen (specimen) STOMACH STRUCTURE / Unknown 02/14/2025 2:58 PM EDT Impressions [facility] - 02/14/2025 7:00 PM EDT A. Stomach, gastric: Biopsy BENIGN GASTRIC MUCOSA WITH MILD NON-SPECIFIC REACTIVE CHANGES CHANGES CONSISTENT WITH PPI THERAPY EFFECT OR FUNDIC GLAND POLYP(S) NEGATIVE FOR H PYLORI GASTRITIS NEGATIVE FOR INTESTINAL METAPLASIA, DYSPLASIA, OR MALIGNANCY Sections show benign gastric mucosa with mild non-specific reactive changes. Some of the changes suggest PPI therapy effect or fundic gland polyp(s). There is no evidence of H pylori gastritis. There is no evidence of intestinal metaplasia, dysplasia or malignancy. B. Esophagus, EG Junction: Biopsy BENIGN ESOPHAGEAL MUCOSA WITH MILD NON-SPECIFIC INFLAMMATION AND REACTIVE CHANGE NEGATIVE FOR INTESTINAL METAPLASIA, DYSPLASIA, OR MALIGNANCY Sections show benign esophageal mucosa with mild inflammation and non-specific reactive change. No intraepithelial eosinophils are seen. There is no evidence of intestinal metaplasia, dysplasia, or malignancy. Exam is negative for evidence of goblet cell metaplasia. Narrative [facility] - 02/14/2025 7:00 PM EDT Pathologist: Pedrito Emanuel MD us Salvador Gonzalez MD VITALAXIS - ORDERABLES Tiana l Result [facility] [address] [place] [address], [place] * ESOPHAGOGASTRODUODENOSCOPY (EGD) (02/14/2025 2:57 PM EDT) Anatomical Region Laterality Modality Endoscopy Narrative 02/14/2025 3:00 PM EDT Table formatting from the original result was not included. Findings The duodenal bulb, 1st part of the duodenum and 2nd part of the duodenum appeared normal. Mild, patchy abnormal mucosa that did not appear erythematous in the fundus of the stomach, body of the stomach and antrum; no bleeding was observed; performed cold forceps biopsy Small sliding hiatal hernia (type I hiatal hernia) Non-obstructing ring in the GE junction; performed cold forceps biopsy; dilated with Otero dilator from 50 Fr starting size to 50 Fr ending size. Dilation caused improved lumen appearance Recommendation Follow up with me in clinic in 3 months Follow up with pathology results. If no results in 4 weeks, please call the office at [phone]. Continue GERD management If symptoms persist, please notify office Pre-Procedure Diagnosis / Indication Chronic throat clearing Post-Procedure Diagnosis None Staff Staff Role No Staff Documented Medications See Anesthesia Record. Preprocedure A history and physical has been performed, and patient medication allergies have been reviewed. The patient's tolerance of previous anesthesia has been reviewed. The risks and benefits of the procedure and the sedation options and risks were discussed with the patient. All questions were answered and informed consent obtained. ASA 2 - Patient with mild systemic disease Details of the Procedure The patient underwent monitored anesthesia care, which was administered by an anesthesia professional. The patient's blood pressure, heart rate, level of consciousness, oxygen saturation, respirations, ECG and ETCO2 were monitored throughout the procedure. The scope was introduced through the mouth and advanced to the second part of the duodenum. Retroflexion was performed in the cardia. The patient experienced no blood loss. The procedure was not difficult. The patient tolerated the procedure well. There were no apparent adverse events. Patient provided education and educated on specific discharge instructions. Patient educated on medications given during the procedure and new medications for discharge. Patient verbalizes understanding of discharge education. Patient stable and awaiting transport for discharge. Events Procedure Events Event Event Time ENDO SCOPE IN TIME 02/14/2025 2:53 PM ENDO SCOPE OUT TIME 02/14/2025 2:57 PM Specimens ID Type Source Tests Collected by Time 1 : r/o h pylori Tissue Gastric [facility] PATHOLOGY ORDER Salvador Gonzalez MD 02/14/2025 1458 2 : r/o barretts Tissue Gastroesophageal Junction [facility] PATHOLOGY ORDER Salvador Gonzalez MD 02/14/2025 1458 Johnna Michelle TORRE[facility] ENDOSCOPY PROCEDURE ORDERABLES Final Result documented in this encounter Visit Diagnoses Diagnosis Chronic throat clearing Other symptoms involving head and neck documented in this encounter Administered Medications Inactive Administered Medications - up to 1 most recent administrations Medication Order MAR Action Action Date Dose Rate Site fentaNYL (SUBLIMAZE) injection Intravenous, INTRAPROCEDURE, Starting on Nellie 02/14/25 at 1441, Until Nellie 02/14/25 at 1441 Given 02/14/2025 2:41 PM EDT 50 mcg lidocaine 1% 10 mg/mL (1 %) injection Intravenous, INTRAPROCEDURE, Starting on Nellie 02/14/25 at 1441, Until Nellie 02/14/25 at 1441 Given 02/14/2025 2:41 PM EDT 5 mL propofoL (DIPRIVAN) injection Intravenous, INTRAPROCEDURE, Starting on Nellie 02/14/25 at 1452, Until Nellie 02/14/25 at 1455 Given 02/14/2025 2:55 PM EDT 25 mg documented in this encounter Historical Medications * This list may reflect changes made after this encounter. ZEPBOUND 12.5 mg/0.5 mL SubQ Pen Injector inject 1 syringe subcutaneously once a week 11/16/2024 metoprolol succinate (TOPROL-XL) 50 mg Oral Tablet Sustained Release 24 hr Take 50 mg by mouth daily. 01/09/2025 levocetirizine (XYZAL) 5 mg Oral Tablet Take 5 mg by mouth daily. 11/14/2024 added in this encounter Care Teams Golf Club Repairer Relationship Specialty Start Date End Date Akanksha Saucedo APRN [address] [place] [address] PCP - General Nurse Practitioner-Family 04/13/22 documented as of this encounter
--- OUTSIDE RECORDS SUMMARY | 2025-04-02 08:12 | XMS_ITS | Encounter Summary ---
Author Organization [facility] Address [address] [place] [address] Care Team Providers Care Data Technical Lead Name Role Phone SaucedoAkanksha LORE Primary Care Provider Encounter Details Date Type Department Care Team (Late st Contact Info) Description 02/20/2025 Results Follow-Up [facility] [address] [place] [address] Salvador Gonzalez MD [address] [place] [phone] [facility] PATHOLOGY ORDER Social History Tobacco Use Types Packs/Day Years [...] on file documented as of this encounter Progress Notes * Salvador Gonzalez MD - 02/20/2025 7:38 PM EDT Please call and let patient know that their biopsies are all benign from their recent endoscopies. Thank you. documented in this encounter Plan of Treatment Upcoming Encounters Date Type Department Care Team (Late st Contact Info) Description 04/19/2025 9:15 AM EDT Appointment [facility] [address] [place] [address] Akanksha Saucedo APRN [address] [address] 04/19/2025 10:00 AM EDT [facility] Visit [facility] [address] [place] [address] Francesca Devine APRN [address] [place] [address] documented as of this encounter Goals Goal Patient Goal Type Associated Problems Recent Progress Patient-Stated? Author Blood Pressure < 140/90 Blood Pressure 115/76( 025 3:16 PM EDT) No Christina Camejo APRN documented as of this encounter Visit Diagnoses Not on filedocumented in this encounter Care Teams Data Technical Lead Relationship Specialty Start Date End Date Akanksha Saucedo APRN [address] [address] PCP - General Nurse Practitioner-Family 04/13/22 documented as of this encounter
--- OUTSIDE RECORDS SUMMARY | 2025-04-02 08:12 | XMS_ITS | Clinical Summary ---
Author Organization [facility] Address [facility] [place] [address] Care Team Providers Care Securities Attorney Name Role Phone Unavailable Primary Care Provider Unavailabl e Source Comments This information has been disclosed to you from confidential records protectedfrom disclosure by state law. You shall make no further disclosure of thisinformation without the specific, written, and informed release of theindividual to whom it pertains, or as otherwise permitted by law. A generalauthorization for the release of medical or other information is not sufficientfor the purposes of therelease of HIV test results or diagnoses. [id number] Health Immunizations Immunization Administration Dates Next Due Td 01/01/2008 Social History Tobacco Use Types Packs/Day Years Used Date Smoking Tobacco: Never Assessed Comments Unknown Sex and Gender Information Value Date Recorded Sex Assigned at Not on file Legal Sex Female 2:21 PM EST Gender Identity Not on file Sexual Orientation Not on file Plan of Treatment Not on file
--- OUTSIDE RECORDS SUMMARY | 2025-04-02 08:12 | XMS_ITS | Clinical Summary ---
Author Organization [facility] Address [address] [place] [address] Phone Care Team Providers Care Adobe Layer Name Role Phone LewisAkanksha LORE Primary Care Provider Allergies Active Allergy Reactions Criticality Noted Date Comments Sulfa (Sulfonamide Antibiotics) Hives Low 03/22 Medications escitalopram oxalate (LEXAPRO) 20 mg Oral Tablet Take 40 mg by mouth daily. Active rosuvastatin (CRESTOR) 10 mg tablet Take 10 mg by mouth daily. Active lisinopril-hydr ochlorothiazide (PRINZIDE;ZESTO RETIC) 20-12.5 mg Oral Tablet 12/09/19 16 Active MULTIVITAMIN ORAL Take 1 Tab by mouth daily. Active CALCIUM CARBONATE/VITAM IN D3 (VITAMIN D-3 ORAL) Take 1 Tab by mouth daily. Active ANUCORT-HC 25 mg Rect Suppository INSERT 1 SUPPOSITORY RECTALLY THREE TIMES DAILY FOR 10 DAYS 02/25/20 22 Active VASCULERA 630 mg Oral Tablet Take 1 Tablet by mouth daily. 04/08/20 22 Active GAVILAX 17 gram/dose Oral Powder 01/21/20 22 Active zolpidem (AMBIEN) 5 mg Oral Tablet TAKE 1 TABLET BY MOUTH ONCE DAILY FOR 90 DAYS 04/02/20 22 Active MEMO 0.1 mg/24 hr TD Patch SemiweeklyIndic ations:Hormone replacement therapy APPLY 1 PATCH TOPICALLY ON THE SKIN TWICE A WEEK 24 Patch 02/02/20 25 Active sertraline (ZOLOFT) 50 mg Oral Tablet Take 50 mg by mouth daily. Active pantoprazole (PROTONIX) 40 mg Oral Tablet, Delayed Release (E.C.) Take 1 Tablet by mouth daily. 90 Tablet 3 02/02/20 25 Active levocetirizine (XYZAL) 5 mg Oral Tablet Take 5 mg by mouth daily. 11/15/19 25 Active metoprolol succinate (TOPROL-XL) 50 mg Oral Tablet Sustained Release 24 hr Take 50 mg by mouth daily. 01/10/20 25 Active ZEPBOUND 12.5 mg/0.5 mL SubQ Pen Injector inject 1 syringe subcutaneously once a week 11/17/19 25 Active Active Problems Problem Noted Date Diagnosed Date Gastroesophageal reflux disease 02/14/2025 Other diseases of stomach and duodenum Other specified disease of esophagus 12/02/2020 Polyp of stomach and duodenum 12/02/2020 Diaphragmatic hernia without obstruction or gang sowmya 06/01/2019 Esophageal obstruction 06/01/2019 Gastritis, unspecified, without bleeding 019 Florian's esophagus without dysplasia 12/13/2016 Syncope 06/01/2012 Encounters Date Type Department Care Team Description 02/20/2025 Results Follow-Up [facility] [address] [facility] [place] [address] Salvador Gonzalez MD [facility] PATH[facility] ORDER 02/14/2025 1:45 PM EDT - 02/14/2025 11:59 PM EDT Hospital Encounter [facility] [address] [facility] [place] [address] Johnna Martinez APRN [place], [place], MD Chronic throat clearing Discharge Disposition: Home or Self Care 02/01/2025 10:00 AM EDT Office Visit [facility] [address] [facility] [place] [address] Johnna Martinez APRN Chronic throat clearing (Primary Dx) 02/01/2025 Refill [facility] [address] [facility] [place] [phone] Francesca Devine APRN Medication Refill from Last 3 Months Immunizations Immunization Administration Dates Next Due Td (Adult), Absorbed 01/01/2008 Surgical History Surgery Date Site/Laterality Comments HYSTERECTOMY CHOLECYSTECTOMY CARPAL TUNNEL RELEASE Bilateral SECTION LITHOTRIPSY FINGER TRIGGER RELEASE Left small finger SHOULDER ARTHROSCOPY 08/10/2016 Shoulder/Right RIGHT SHOULDER ARTHROSCOPY DECOMPRESSION ACROMIOPLASTY ACROMIOCLAVICULAR JOINT EXCISION (AMBIT) (DANIELE DOMÍNGUEZ) (28.3); Surgeon: Prateek Dang MD; Location: [facility]; Service: Orthopedics Medical History Medical History Date Comments Hyperlipemia Hypertension Family History Medical History Relation Name Comments Heart Failure Father Hypertension Father Stroke Father Diabetes Mother Relation Name Status Comments Father Mother Social History Tobacco Use Types Packs/Day Years Used Date Smoking Tobacco: Never Smokeless Tobacco: Never Tobacco Cessation:Counseling Given: Not Answered Alcohol Use Standard Drinks/Week Comments No 0 (1 standard drink = 0.6 oz pur e alcohol) Sexually Active Control Partners Comments Yes Post-menopausal Male Comments No Sex and Gender Information Value Date Recorded Sex Assigned at Not on file Legal Sex Female 3:07 PM EDT Gender Identity Not on file Sexual Orientation Not on file Obstetrics History Para Term AB IAB SAB Ectopic Multiple Livin g Live Births 2 2 2 2 Date Outcome GA Total Labor Labor/2nd/3rd Weight Sex Type Anes PTL Carmen A1 A5 Name Clin Term CSP Epidural Term PROJECT ADMINISTRATIVE ASSISTANT Spinal Last Filed Vital Signs Vital Sign Reading [...] Mass Index 23.24 02/14/2025 1:52 PM EDT Plan of Treatment Upcoming Encounters Date Type Department Care Team (Late st Contact Info) Description 04/19/2025 9:15 AM EDT Appointment [facility] [address] [place] [address] Akanksha Saucedo, LORE [address] [id number] 04/19/2025 10:00 AM EDT [facility] [address] [place] [address] Francesca Devine APRN [address] [facility] [place] [address] Health Maintenance Due Date Last Done Comments Wellness Exam Medicare 11/22/1962 Hepatitis C Screening 11/22/1977 Cologuard 11/22/2004 FIT 11/22/2004 Sigmoidoscopy 11/22/2004 Virtual Colonography 11/22/2004 DTaP/TDaP/Td (1 - Tdap) 01/02/2008 01/01/2008 Pneumococcal Vaccine 50+ (1 of 1 - PCV) 11/22/2009 Zoster (1 of 2) 11/22/2009 COVID-19 Vaccine (1 - season) 2024 Influenza Vaccine (#1) 2025 07/09/2021, 2015 Breast Cancer Screening 09/07/2025 09/07/19 24, 03/05/2022, 05/08/2020, Additional history exists Colon Cancer Screening 05/05/2032 Colonoscopy 05/05/2032 05/05/2022, 02/19/2017 Bone Density Screening Completed 06/26/2010 Hepatitis B Vaccine Aged Out No longe r eligible based on patient's age to complete this topic Meningococcal B Vaccine Aged Out No l onger eligible based on patient's age to complete this topic Goals Goal Patient Goal Type Associated Problems Recent Progress Patient-Stated? Author Blood Pressure < 140/90 Blood Pressure 115/76( 025 3:16 PM EDT) No Christina Camejo APRN Procedures Procedure Name Priority Date/Time Associated Diagnosis Comments [facility] PATHOLOGY ORDER Routine 02/14/2025 2:58 PM EDT Chronic throat clearing ESOPHAGOGASTRODUODENOSCOPY (EGD) Routine 02/14/2025 2:57 PM EDT Chronic throat clearing MM MAMMO DIGITAL MELODIE SCREEN BILAT Routine 09/07/2023 11:15 AM EST Encounter for screening mammogram for malignant neoplasm of breast [facility] EGD-COLONOSCOPY Routine 05/05/2022 1:00 PM EDT Gastroesophageal reflux disease with esophagitis, unspecified whether hemorrhage DX BONE DENSITY AXIAL SKELETON Routine 1 08/26/2009 2:49 PM EDT Back pain from Last 3 Months or Most Recently Relevant to Health Maintenance Results * [facility] PATHOLOGY ORDER (02/14/2025 2:58 PM EDT) Tissue CARDIOESOPHAGEAL JUNCTION STRUCTURE / Unknown 02/14/2025 2:58 PM EDT Tissue specimen (specimen) STOMACH STRUCTURE / Unknown 02/14/2025 2:58 PM EDT Impressions [facility] - 02/14/2025 7:00 PM EDT A. [...] for evidence of goblet cell metaplasia. Narrative [facility] - 02/14/2025 7:00 PM EDT Pathologist: Pedrito Emanuel MD us Salvador Gonzalez MD VITALAXIS - ORDERABLES Tiana l Result [facility] [address] [facility] [place] [address], [place] * ESOPHAGOGASTRODUODENOSCOPY (EGD) (02/14/2025 2:57 PM [...] 4 weeks, please call the office at [phone]. Continue GERD management If symptoms persist, please [...] ORDER Salvador Gonzalez MD 02/14/2025 1458 Johnna Martinez BIOASSAYIST ENDOSCOPY PROCEDURE ORDERABLES Final Result * MM MAMMO DIGITAL MELODIE SCREEN BILAT (09/07/2023 11:15 AM EST) Anatomical Region Laterality Modality Breast Bilateral Mammography 09/07/2023 12:4 0 PM EST Impressions 09/07/2023 12:40 PM EST Negative ([id number]) ~ RECOMMENDATION: Routine screening mammogram in 1 year. ~ DISCLAIMER * Any patient with a palpable abnormality, unexplained by breast imaging, should be managed on clinical basis by the attending physician. * Breast imaging has a false negative rate of 15%. * The patient was notified by mail of the results of this examination. *The patient's information was entered into a reminder system with a target due date for the next mammogram, in accordance with the [employer] and the Society of Breast Imaging recommendations. Narrative 09/07/2023 12:40 PM EST Procedure:MM MAMMO DIGITAL MELODIE SCREEN BILAT ~ Reason for exam: screening, asymptomatic. Z12.31-Encounter for screening mammogram for malignant neoplasm of [id number] ~ MM MAMMO DIGITAL MELODIE SCREEN BILAT Bilateral CC and MLO view(s) were taken. Technologist: RT Tyrese The breast tissue is heterogeneously dense. This may lower the sensitivity of mammography. Prior study comparison: Compared with prior studies the most recent being 03/05/22, 05/08/20 No mammographic evidence of malignancy. ~ Procedure Note Leticia Dukes MD - 09/07/2023 Procedure:MM MAMMO DIGITAL MELODIE SCREEN BILAT ~ Reason for exam: screening, asymptomatic. Z12.31-Encounter for screening mammogram for malignant neoplasm of [id number] ~ MM MAMMO DIGITAL MELODIE SCREEN BILAT Bilateral CC and MLO view(s) were taken. Technologist: RT Tyrese The breast tissue is heterogeneously dense. This may lower thesensitivity of mammography. Prior study comparison: Compared with prior studies the most recentbeing 03/05/22, 05/08/20 No mammographic evidence of malignancy. ~ IMPRESSION: Negative ([id number]) ~ RECOMMENDATION: Routine screening mammogram in 1 year. ~ DISCLAIMER * Any patient with a palpable abnormality, unexplained by breast imaging, should be managed on clinical basis by the attending physician. * Breast imaging has a false negative rate of 15%. * The patient was notified by mail of the results of this examination. *The patient's information was entered into a reminder system with atarget due date for the next mammogram, in accordance with the [employer] and the Society of Breast Imaging recommendations. us Akanksha Saucedo APRN IMG MAMMOGRAPHY ORDERABLES F inal Result * [facility] EGD-COLONOSCOPY (05/05/2022 1:00 PM EDT) 05/05/2022 1:00 PM EDT Impressions [facility] - 05/05/2022 1:52 PM EDT Plan: This section is an excerpt of the full report. Salvador Gonzalez MD GI PROCEDURE ORDERABLES Fin al Result Performing Organization Address City/State/[facility] Co de Phone Number [facility] [address] [phone] * DX BONE DENSITY AXIAL SKELETON (06/26/2010 2:49 PM EDT) Anatomical Region Laterality Modality Dexa Scan Impressions 06/30/2010 10:58 AM EST : Bone mineral density is in the normal range. RECOMMENDATIONS: Patient's bone density scan is normal. Future follow up DXA scan as patient's medical history dictates. USEFULNESS OF THE SPINE MEASUREMENT IS LIMITED IN PATIENTS OVER THE AGE OF 70 DUE TO DEGENERATIVE BONY SCLEROSIS Following the Surgeon General's recommendations additional interventions are to include but not limited to drug therapy, physical therapy and nutrition counseling. The World Health Organization defines normal bone mass for postmenopausal women as a T-Score at or above -1, osteopenia as a T-Score between -1 and -2.5, osteoporosis as a T-Score at or below -2.5 and severe osteoporosis at or below -2.5 with a fracture. A patient's risk for fracture doubles for each standard deviation decline in bone density. Narrative 06/30/2010 10:58 AM EST Study: Bone densitometry was performed on [employer] equipment. CLINICAL INDICATIONS: Patient is a postmenopausal woman with a history of estrogen deficiency, HRT since 1998, back pain. BMD (g/cm2) T-SCORE Spine, L1-L4 0.988 -0.5 Hip Neck, Left 0.826 -0.2 Hip Total, Left 0.996 +0.4 Hip Neck, Right 0.822 -0.2 Hip Total, Right 1.040 +0.8 1/3 Radius, Left 0.707 +0.2 Procedure Note Tyrell Mcmanus - 06/30/2010 Study: Bone densitometry was performed on [employer] equipment. CLINICAL INDICATIONS: Patient is a postmenopausal woman with a history of estrogen deficiency,HRT since 1998, back pain. BMD (g/cm2) T-SCORE Spine, L1-L4 0.988 -0.5 Hip Neck, Left 0.826 -0.2 Hip Total, Left 0.996 +0.4 Hip Neck, Right 0.822 -0.2 Hip Total, Right 1.040 +0.8 1/3 Radius, Left 0.707 +0.2 IMPRESSION: Bone mineral density is in the normal range. RECOMMENDATIONS: Patient's bone density scan is normal. Future follow up DXA scan aspatient's medical history dictates. USEFULNESS OF THE SPINE MEASUREMENT IS LIMITED IN PATIENTS OVER THE AGEOF 70 DUE TO DEGENERATIVE BONY SCLEROSIS Following the Surgeon General's recommendations additional interventionsare to include but not limited to drug therapy, physical therapy andnutrition counseling. The World Health Organization defines normal bone mass for postmenopausalwomen as a T-Score at or above -1, osteopenia as a T-Score between -1 and-2.5, osteoporosis as a T-Score at or below -2.5 and severe osteoporosisat or below -2.5 with a fracture. A patient's risk for fracture doublesfor each standard deviation decline in bone density. MD ALEXIS Ellis DEXA ORDERABLES Tiana l Result from Last 3 Months or Most Recently Relevant to Health Maintenance Insurance [employer] MEDICARE HMO MR Care Teams Adobe Layer Relationship Specialty Start Date End Date Akanksha Saucedo APRN [address] [place] [id number] PCP - General Nurse Practitioner-Family 04/13/22
--- OUTSIDE RECORDS SUMMARY | 2025-04-02 08:15 | XMS_ITS | Clinical Summary ---
Author Organization [facility] Address [address] [place] [address] Care Team Providers Care Combination Saw Operator Name Role Phone Liam Chaidez MD Primary Care Provider + Active Problems Problem Noted Date Diagnosed Date Syncope 06/01/2012 Social History Tobacco Use Types Packs/Day Years Used Date Smoking Tobacco: Never Assessed Comments Unknown Sex and Gender Information Value Date Recorded Sex Assigned at Not on file Legal Sex Female 7:22 PM EST Gender Identity Not on file Sexual Orientation Not on file Last Filed Vital Signs Vital Sign Reading Time Taken Comments Blood Pressure 113/65 06/01/2012 3:08 PM EDT Pulse 63 06/01/2012 3:08 PM EDT Temperature 36.8 C (98.2 F) 06/01/2012 3:08 PM EDT Respiratory Rate 12 06/01/2012 1:52 PM EDT Oxygen Saturation 100% 06/01/2012 3:04 PM EDT Inhaled Oxygen Concentration - - Weight - - Height - - Body Mass Index - - Plan of Treatment Not on file Insurance ANTHEM Care Teams Combination Saw Operator Relationship Specialty Start Date End Date Liam Chaidez MD [address] [place] [address] PCP - General Family Medicine 06/01/12
--- OUTSIDE RECORDS SUMMARY | 2025-04-02 08:15 | XMS_ITS | Clinical Summary ---
Author Organization [facility] Address [address] [place], [place] [id number] Phone [email or web address] Care Team Providers Care Superintendent [employer] Name Role Phone Unavailable Primary Care Provider Unavailabl e Active Problems Problem Noted Date Diagnosed Date Acute upper respiratory infection 06/28/2011 Overview (01/18/2018): Routine general medical exam ination at a health care facility 12/22/2010 Overview (01/18/2018): Influenza with other manifestations 07/23/2009 Overview (01/18/2018): Dog bite 01/01/2008 Overview (01/18/2018): Other examination of ears and hearing 11/16/2007 Overview (01/18/2018): Social History Tobacco Use Types Packs/Day Years Used Date Smoking Tobacco: Never Assessed Intimate Partner Violence Answer Date R ecorded Insults You Not on file 12/02/2020 Threatens You Not on file 12/02/2020 Screams at You Not on file 12/02/2020 Physically Hurt Not on file 12/02/2020 Intimate Partner Violence Score Not on file 12/02/2020 Stress Answer Date Recorded Stress in your Life Not on file 06/25/2024 Dealing with Stress 3 06/25/2024 Comments Unknown Sex and Gender Information Value Date Recorded Sex Assigned at Not on file Legal Sex Female 7:14 AM CDT Gender Identity Not on file Sexual Orientation Not on file Last Filed Vital Signs Vital Sign Reading Time Taken Comments Blood Pressure 110/73 11/05/2016 3:21 PM CDT Pulse 96 11/05/2016 3:21 PM CDT Temperature 38.2 C (100.8 F) 09/22/2021 9:53 AM EST Respiratory Rate - - Oxygen Saturation - - Inhaled Oxygen Concentration - - Weight 71.7 kg (158 lb 1.9 oz) 10/22/2016 3:36 P M PAYMENT POSTER Height 154.9 cm (5' 1 ) 09/20/2013 4:46 PM PAYMENT POSTER Body Mass Index 29.88 09/20/2013 4:46 PM PAYMENT POSTER Plan of Treatment Health Maintenance Due Date Last Done Comments CT Colonography 1959 Cervical Cancer Screening Combo 1959 Colonoscopy 1959 Colorectal Cancer Screening Combo 1959 DNA Cologuard 1959 Dental Cleaning/Exam 1959 FIT or FOBT Test 1959 HPV / Cotest 1959 Pap Testing 1959 Sigmoidoscopy 1959 Breast Cancer Screening 11/22/1989 Tetanus Diphtheria and Pertu ssis Immunization (1 - Tdap) 01/02/2008 01/01/2008 Osteoporosis screening DEXA 11/22/2009 Pneumococcal: 65+ Years (1 o f 1 - PCV) 11/22/2009 Zoster Immunization (1 of 2) 11/22/2009 Covid-19 Immunization (1 - 2 25 season) 2024 Influenza Immunization (#1) 2025 HIB Immunization Aged Out No longer e ligible based on patient's age to complete this topic HPV Immunization Aged Out No longer e ligible based on patient's age to complete this topic Hepatitis A Immunization Aged Out No longer eligible based on patient's age to complete this topic Hepatitis B Immunization Aged Out No longer eligible based on patient's age to complete this topic Polio Immunization Aged Out No longer eligible based on patient's age to complete this topic
--- OUTSIDE RECORDS SUMMARY | 2025-04-02 08:15 | XMS_ITS | Encounter Summary ---
Author Organization [facility] [address] Care Team Providers Care Family Therapist Name Role Phone Akanksha Saucedo APRN Primary Care Provider [phone] Reason for Visit * Reason Comments Medication Refill Encounter Details Date Type Department Care Team (Late st Contact Info) Description 02/01/2025 Refill [facility] [address] [place] [phone] Francesca Devine APRN [address] [facility] [place] [id number] Medication Refill Social History Tobacco Use Types Packs/Day Years [...] on file documented as of this encounter Ordered Prescriptions Prescription Sig Dispense Quantity Refills Last Filled Start Date End Date MEMO 0.1 mg/24 hr TD Patch SemiweeklyIndicati ons:Hormone replacement therapy APPLY 1 PATCH TOPICALLY ON THE SKIN TWICE A WEEK 24 Patch 02/01/2025 documented in this encounter Plan of Treatment Upcoming Encounters Date Type Department Care Team (Late st Contact Info) Description 04/19/2025 9:15 AM EDT Appointment [facility] [address] [place] [address] Akanksha Saucedo APRN [phone] [address] 04/19/2025 10:00 AM EDT Office Visit [facility] [address] [place] [phone] Francesca Devine APRN [address] [place] [address] documented as of this encounter Goals Goal Patient Goal Type Associated Problems Recent Progress Patient-Stated? Author Blood Pressure < 140/90 Blood Pressure 115/76( 025 3:16 PM EDT) No Christina Camejo APRN documented as of this encounter Visit Diagnoses Diagnosis Hormone replacement therapy documented in this encounter Discontinued Medications Medication Sig Discontinue Reason Start Date End Da te estradioL (VIVELLE) 0.1 mg/24 hr TD Patch SemiweeklyIndications:Hor nataliia replacement therapy Place 1 Patch onto the skin two times a week. 11/12/2024 02/01/2025 documented as of this encounter Care Teams Family Therapist Relationship Specialty Start Date End Date Akanksha Saucedo APRN [address] [address] PCP - General Nurse Practitioner-Family 04/13/22 documented as of this encounter
[2025-04-02 10:56] LABS: Alanine Aminotransferase 23 U/L (12-78); Albumin Level 4.1 g/dl (3.5-5.0); Albumin/Globulin Ratio 1.7 (1.1-1.8); Alkaline Phosphatase 88 U/L (38-126); Anion Gap 9.5 mEq/L (5-15); Aspartate Amino Transferase 26 U/L (14-36); Bilirubin,Total 0.3 mg/dl (0.2-1.3); Blood Urea Nitrogen 28 mg/dl (7-17); Calcium 9.2 mg/dl (8.4-10.2); Carbon Dioxide 29 mmol/L (22.0-30.0); Chloride 105 mmol/L (98-107); Cholesterol 226 mg/dl (140-200); Creatinine,Serum 0.50 mg/dl (0.52-1.04); Estimated Glomerular Filt Rate 124 ml/min (>60); GFR (African American) 150 ML/MIN (>60); Globulin 2.4 g/dL (1.3-3.2); Glucose 92 mg/dl (74-100); HDL Cholesterol 80 mg/dl (40-60); Potassium 4.5 mmoL/L (3.5-5.1); Sodium 139 mmol/L (136-145); Total Protein,Serum 6.5 g/dl (6.3-8.2); Triglycerides 102 mg/dl (30-150)
== END 2025-04-02 23:59 | disposition home or self-care (01) ==
PROVIDERS: PCP Nurse Practitioner Family; Visit Provider Nurse Practitioner Family
DX: E78.5 Hyperlipidemia, unspecified (principal)
CPT/HCPCS: 36415; 80053; 80061